=== PATIENT | female | born 1985 | race Caucasian/White ===

== ENCOUNTER 2018-08-30 08:18 | Emergency (ER) | payer OTHER ==
[~2018-08-30] VITALS: Ht 165.1 cm; Wt 104.3 kg
[2018-08-30] MEDS ORDERED: CIPRO500 MG PO (11:18)
== END 2018-08-30 11:22 | disposition home or self-care (01) ==
LOC: ED 08:18
DX: R10.9 Unspecified abdominal pain (principal)
CPT/HCPCS: 74176; 81001; 84703; 87077; 87088; 87186; 96372; 99284-25; J1885

== ENCOUNTER 2024-04-22 19:53 | Emergency (ER) | payer BC ==
[~2024-04-22] VITALS: Ht 165.1 cm; Wt 98.0 kg
[~2024-04-22 19:53] MED LIST: CIPRO500 MG PO
[2024-04-22 20:38] LABS: BASOPHILS 0.6 % (0-2); EOSINOPHILS 3.4 % (0-6); HEMATOCRIT 40.3 % (35.0-50.0); HEMOGLOBIN 13.1 g/dL (12.0-18.0); LYMPHOCYTES 22.5 % (24-44); MCH 26.2 (27-36); MCHC 32.6 g/dl (30-36); MCV 80.3 fl (81-99); MONOCYTES 8.7 % (0-12); NEUTROPHILS 64.8 % (39-80); PLATELET COUNT 325 K/uL (140-440); RBC 5.02 M/ul (4.3-5.7); RDW 15.3 (10.5-15.0)
[2024-04-22 20:54] LABS: ALBUMIN 3.5 g/dL (3.4-5.0); ALBUMIN/GLOBULIN RATIO 0.9 (1.1-2.4); ANION GAP 13.6 (7-21); BILIRUBIN, TOTAL 0.2 ng/dL (0.2-1.0); BUN/CREATININE RATIO 13.79 (6.0-28.6); CALCIUM 8.9 mg/dL (8.5-10.1); CREATININE, SERUM 0.87 mg/dL (0.55-1.02); POTASSIUM 3.6 mmol/L (3.5-5.1); PROTEIN, TOTAL 7.4 g/dL (6.4-8.2)
[2024-04-22 22:05] LABS: BILIRUBIN, URINE NEGATIVE (negative); BLOOD/HGB, URINE NEGATIVE (Negative); KETONE, URINE NEGATIVE (Negative); LEUK ESTERASE, URINE TRACE (negative); NITRITE, URINE NEGATIVE (negative)
[2024-04-22 22:11] LABS: BACTERIA, URINE NONE SEEN /hpf (negative); CASTS, URINE NONE SEEN \\lpf; CRYSTALS, URINE NONE SEEN (0-1+); EPITHELIAL CELLS, URINE SQUAMOUS 3+ /lpf (0-1+); RED BLOOD CELLS, URINE 0-1 /hpf (0-5)
[2024-04-22 22:12] LABS: COLLECTION TYPE, URINE CLEAN CATCH; REFLEX CULTURE, URINE No (No)
[2024-04-22] MEDS ORDERED: FAMOTIDINE 20 MG/ 2 ML VIAL IV ONE (22:15)
[2024-04-22 23:45] VITALS: BP 134/74
== END 2024-04-22 23:45 | disposition home or self-care (01) ==
LOC: ED 19:53
PROVIDERS: Internal Medicine
DX: K80.20 Calculus of gallbladder without cholecystitis without obstruction (principal); Z88.8 Allergy status to other drugs, medicaments and biological substances
CPT/HCPCS: 36415; 76705; 80053; 81001; 83690; 84703; 85025; 96374; 99284-25

== ENCOUNTER 2024-05-19 09:15 | Day surgery (SDC) | payer BC ==
[2024-05-18 09:25] VITALS: BP 116/81
[~2024-05-19] VITALS: Ht 165.1 cm; Wt 97.7 kg
[~2024-05-19 09:15] MED LIST changes: +CEFAZOLIN SODIUM 2 GM/20 ML SYR IV SCH; +HEParin SOD (PORCINE) 5,000 UNIT/ML SDV SUB-Q SCH; +IBLOOD GLUCOSE TEST STRIP 1 EA TEST VI PRN; +LACTATED RINGER'S 1,000 ML IV SCH; +LIDOCAINE HCL 1% 5 ML SDV INJ ONE; +MIDAZOLAM HCL 2 MG/2 ML VIAL ONE
[2024-05-19] MEDS ORDERED: METOCLOPRAMIDE HCL 10 MG/2 ML SDV ONE (09:18)
[2024-05-19] MEDS ORDERED: ondansetron HCL 4 MG/2 ML VIAL ONE (09:18)
[2024-05-19] MEDS ORDERED: KETOROLAC TROMETHAMINE 30 MG/ML VIAL ONE (09:18)
[2024-05-19] MEDS ORDERED: SUGAMMADEX SODIUM 200 MG/2 ML ML ONE (09:18)
[2024-05-19] MEDS ORDERED: ROCURONIUM BROMIDE 50 MG/5 ML SYR ONE (09:18)
[2024-05-19] MEDS ORDERED: propofoL 200 MG/20 ML VIAL ONE (09:18)
[2024-05-19] MEDS ORDERED: SUCCINYLCHOLINE IN 0.9% NACL 200 MG/10 ML SYRINGE ONE (09:18)
[2024-05-19] MEDS ORDERED: DEXAMETHASONE SOD PHOS 4 MG/ML VIAL ONE (09:18)
[2024-05-19] MEDS ORDERED: LACTATED RINGER'S 1,000 ML IV ONE (09:18)
[2024-05-19] MEDS ORDERED: FAMOTIDINE 20 MG/ 2 ML VIAL ONE (09:19)
[2024-05-19] MEDS ORDERED: LIDOCAINE HCL 4% 5 ML AMP ONE (09:19)
[2024-05-19] MEDS ORDERED: fentaNYL citrate 100 MCG/2 ML VIAL ONE (09:19)
[2024-05-19 09:25] VITALS: BP 126/75
[2024-05-19] MEDS ORDERED: METOPROLOL TARTRATE 5 MG/5 ML VIAL ONE (09:32)
[2024-05-19] MEDS ORDERED: MORPHINE SULFATE 10 MG/ML VIAL IV PRN (09:45)
[2024-05-19] MEDS ORDERED: NALOXONE HCL 0.4 MG SYR IV PRN ×2 (09:45→12:45)
[2024-05-19] MEDS ORDERED: droPERidol 5 MG/2 ML VIAL IV PRN (09:45)
[2024-05-19] MEDS ORDERED: IBLOOD GLUCOSE TEST STRIP 1 EA TEST VI PRN (09:45)
[2024-05-19] MEDS ORDERED: ondansetron HCL 4 MG/2 ML VIAL IV PRN (09:45)
[2024-05-19] MEDS ORDERED: METOCLOPRAMIDE HCL 10 MG/2 ML SDV IV PRN (09:45)
[2024-05-19] MEDS ORDERED: PROCHLORPERAZINE EDISYLATE 10 MG/2 ML VIAL IV PRN (09:45)
[2024-05-19] MEDS ORDERED: fentaNYL citrate 50 MCG/ML SDV IV PRN (09:45)
[2024-05-19] MEDS ORDERED: iopamidoL 30 ML VIAL ONE (10:37)
[2024-05-19] MEDS ORDERED: SODIUM CHLORIDE 0.9% 60 ML IV ONE (10:38)
[2024-05-19] MEDS ORDERED: MORPHINE SULFATE 10 MG/ML VIAL ONE (11:40)
[2024-05-19] MEDS ORDERED: TYLENOL EXTRA500 MG PO (12:39)
[2024-05-19] MEDS ORDERED: PERCOCET 7.5-31 EACH PO (12:39)
[2024-05-19] MEDS ORDERED: MOTRIN IB200 MG PO (12:39)
[2024-05-19] MEDS ORDERED: LACTATED RINGER'S 1,000 ML IV SCH (12:45)
[2024-05-19] MEDS ORDERED: ACETAMINOPHEN 500 MG TAB PO PRN (12:45)
[2024-05-19] MEDS ORDERED: IBUPROFEN 600 MG TAB PO PRN (12:45)
[2024-05-19] MEDS ORDERED: OXYCODONE/APAP 7.5/325 TAB PO PRN (12:45)
--- NOTE | 2024-05-19 12:47 | NUR ---
05/19/24 1247 Mayra Antonio 1223- PACU ARRIVES TO THE PACU WITH AN ORAL AIRWAY IN PLACE. JAW THRUST NEEDED TO MAINTAIN AIRWAY. BREATHING IS EVEN AND UNLABORED. MONITORS PUT IN PLACE. VSS. SURGICAL SITES ARE CDI. ABDOMEN IS SOFT AND NONDISTENDED. LR INFUSING IN HER R AC. PT IS LAYING IN SEMI FOWLERS AND IS NONREACTIVE TO VERBAL AND TACITLE STIMULI. PT HAS A MASK IN PLACE ON 10L OF O2.
[2024-05-19 13:45] VITALS: BP 131/74
[2024-05-19] MEDS ORDERED: PROCHLORPERAZINE EDISYLATE 10 MG/2 ML VIAL IV ONE (14:15)
--- NOTE | 2024-05-19 14:15 | NUR ---
PT COMPLAINING OF NAUSEA. SMALL AMOUNT OF EMESIS AT THIS TIME. TEST DEPARTMENT HELPER CALLED ORDER GIVEN FOR COMPAZINE AT THIS TIME. 10 MG GIVEN IV.
--- NOTE | 2024-05-19 14:22 | OR ---
[facility] [address] [place], [place] [address] Signed DATE OF OPERATION: 05/19/2024 SURGEON: Mckenna Rodriguez MD PREOPERATIVE DIAGNOSES: 1. Chronic calculous cholecystitis. 2. History of ulcerative colitis. POSTOPERATIVE DIAGNOSES: 1. Chronic calculous cholecystitis. 2. History of ulcerative colitis. PROCEDURES: 1. Laparoscopic cholecystectomy with intraoperative cholangiogram. 2. Surgeon-directed fluoroscopy. ANESTHESIA: General endotracheal, Mckenna Fernández CRNA and local 10 mL of 0.25% Marcaine with epinephrine. INDICATION: This 39-year-old white woman is a patient of JAMI Long. She was referred for cholecystectomy. In the past four months, she has had right upper abdominal pain occurring episodically. It was most prominent right after Thanksgiving. She has family history of biliary disease in a maternal grandmother, paternal grandfather and her sister (a nurse at [employer]). The patient has underlying history of ulcerative colitis long-standing but takes no medication currently. She has taken Humira for her ulcerative colitis in the past. She is admitted at this time to undergo cholecystectomy for symptomatic gallstones as noted on gallbladder ultrasound. The risk of bleeding, infection, bile duct injury, need for open procedure and other unforeseen complications were reviewed with her in detail. She understands and wished to proceed. FINDINGS: The gallbladder was chronically inflamed. The gallbladder once excised showed extensive cholesterolosis as well as several stones that were yellow mulberry type stones about a cm in size. OF special note is the cystic arterial branch was noted to be short and directly coming off the an extra hepatic portion of the right hepatic artery. the right hepatic artery was completely unharmed. Electronically Signed By: MCKENNA RODRIGUEZ MD 05/19/24 1422 PATIENT NAME: DION JENSEN OPERATIVE REPORT DATE OF : 83 REPORT #: [id number] PHYSICIAN: MCKENNA RODRIGUEZ MD PCP: SHARA HAKW REPORT IS CONFIDENTIAL AND NOT TO BE RELEASED WITHOUT AUTHORIZATION [facility] [address] [place], [place] [address] Signed DESCRIPTION OF PROCEDURE: The patient was brought to the operating room, given a general endotracheal anesthetic. Preoperative antibiotic Ancef was given. Sequential compression device stockings used and heparin subcutaneously administered. The abdomen was prepared with chlorhexidine solution and draped sterilely. An infraumbilical incision was made and using an open Ruel cannula technique pneumoperitoneum was achieved to a level of 14 mmHg of carbon dioxide gas. Intra-abdominal inspection showed no sign of ascites or carcinomatosis. The gallbladder was obscured from view due to obesity and omentum. The liver appeared normal. Three additional trocars were placed in their usual configuration in the subxiphoid, right midclavicular, and right anterior axillary line. Gallbladder was elevated cephalad and retracted laterally. Using blunt and electrocautery dissection fatty peritoneum overlying the gallbladder was dissected free revealing the underlying gallbladder. The gallbladder was rather elongated and dissection ultimately identified the cystic duct which was meticulous dissected free from surrounding tissue. Once isolated, one could see a small arterial branch, but also a very large arterial branch which ultimately was confirmed to be the right hepatic artery. Cystic arterial branches were clipped and divided exposing well at the point of the cystic duct and the critical view of safety. Clips were applied across the gallbladder cystic duct junction and a transverse choledochotomy made in the cystic duct. Egress of clear bile was noted. Using the Olvera type cholangiocatheter, intraoperative cholangiography was undertaken showing free flow of contrast in biliary tree with prompt emptying into the duodenum. The catheter was removed and the cystic duct was triply clipped and divided. The gallbladder was then dissected free in a retrograde fashion using electrocautery. Care was taken to avoid any injury to the visualized portion of the right hepatic artery. Ultimately, one could identify where the artery reentered the liver. The gallbladder was dissected free completely and placed in an endobag and extracted through the infraumbilical port site, opened on the back table and found to have cholesterolosis as well as several stones that were yellow and mulberry in shape. Irrigation was undertaken in the subhepatic space. There was no sign of bile leak, bleeding, or other problems. Excess irrigation fluid was suctioned free and plans made for closure. The infraumbilical fascial incision was reapproximated with interrupted 0 Vicryl suture. A 10 mL of 0.25% Marcaine with epinephrine was injected locally into the trocar sites. The skin was then closed with interrupted 3-0 Vicryl. Steri-Strips were applied. The patient was ultimately extubated and transferred to the recovery room in good condition having suffered no complication. Sponge, needle, and instrument counts were reported as correct x3. Electronically Signed By: MCKENNA RODRIGUEZ MD 05/19/24 1422 PATIENT NAME: DION JENSEN OPERATIVE REPORT DATE OF : 83 REPORT #: [id number] PHYSICIAN: MCKENNA RODRIGUEZ MD PCP: SHARA HAWK REPORT IS CONFIDENTIAL AND NOT TO BE RELEASED WITHOUT AUTHORIZATION [place] [phone] Signed MD PEPITO Lam/MODL /[id number] cc: JAMI Long Copies: SHARA HAWK ~ Electronically Signed By: MCKENNA RODRIGUEZ MD 05/19/24 1422 PATIENT NAME: DION JENSEN OPERATIVE REPORT DATE OF : 83 REPORT #: [id number] PHYSICIAN: MCKENNA RODRIGUEZ MD PCP: SHARA HAWK REPORT IS CONFIDENTIAL AND NOT TO BE RELEASED WITHOUT AUTHORIZATION
--- NOTE | 2024-05-19 14:49 | NUR ---
PT UP TO BATHROOM. VOIDED 200ML. PT COMPLAINING OF PAIN 4/10 AT THIS TIME. 1 TAB PERCOCET 7.5/325 GIVEN AT THIS TIME.
--- NOTE | 2024-05-19 15:00 | NUR ---
PT DISCHARGED TO HOME WITH ALL BELONGINGS WITH . DISCHARGE INSRUCTIONS GIVEN ON MEDICATION, FOLLOW-UP, WHEN TO CONTACT THE MD, ACTIVITY, AND DIET. PT VERBALIZED UNDERSTADING AND LEFT FOR HOME WITH .
[2024-05-19] MEDS ORDERED: SEVOFLURANE 250 ML BTL INH ONE (15:15)
--- NOTE | 2024-05-23 13:16 | PATH ---
[facility] [address] [facility] [place], [place] [address] Signed SPECIMEN(S): A GALLBLADDER AND STONES SPECIMEN SOURCE: A. GALLBLADDER AND STONES CLINICAL HISTORY: Chronic cholecystitis with calculus. FINAL PATHOLOGIC DIAGNOSIS: Gallbladder and stones: - Chronic calculous cholecystitis. - Mucosal cholesterolosis. JVR:clv MICROSCOPIC EXAMINATION: Histologic sections of all submitted blocks are examined by light microscopy. These findings, together with the gross examination, support the pathologic diagnosis. GROSS DESCRIPTION: The specimen, labeled and designated "Rinajudit, J, " and designated on the requisition "gallbladder and stones," is received in formalin and consists of Specimen: Previously opened gallbladder. Dimensions: 8.6 x 4.5 x 1.3 cm. Serosa: Yellow-green and smooth. Cystic Duct: Inked, from patent. Calculi: 3.6 x 2.2 x 1.3 cm aggregate of yellow-bull multilobulated calculi. Mucosa: Green and velvety with yellow flecking. Wall thickness: 0.6 cm. Lymph node: No pericystic lymph nodes are grossly identified. Additional: None. Gear Cutting Machine Set Up Operator sections are submitted in (A1). FB (under the direct supervision of a pathologist) The Gross Description was prepared using a voice recognition system. The report was reviewed for accuracy; however, sound-alike word errors, addition and/or deletions may occur. If there is any question about this report, please contact Client Services. PERFORMING LABORATORY: Technical component was performed by [facility], [address] [place] [id number] (CLIA# [id number]). Professional interpretation was PATIENT NAME: DION JENSEN PATHOLOGY DATE OF : 83 REPORT #: [id number] PHYSICIAN: [facility] PCP: SHARA HAWK REPORT IS CONFIDENTIAL AND NOT TO BE RELEASED WITHOUT AUTHORIZATION [facility] [address] [place], [place] [address] Signed performed by [facility] - [address] [place] [address] (CLIA#: [id number]). Diagnostician: Eric Phelps MD Pathologist Electronically Signed 05/23/2024 Copies: ~ PATIENT NAME: DION JENSEN PATHOLOGY DATE OF : 83 REPORT #: [id number] PHYSICIAN: [facility] PCP: SHARA HAWK REPORT IS CONFIDENTIAL AND NOT TO BE RELEASED WITHOUT AUTHORIZATION
== END 2024-05-19 15:00 | disposition home or self-care (01) ==
LOC: DS 09:15
PROVIDERS: ATTEND Surgery
PROC: 0FT44ZZ Resection of Gallbladder, Percutaneous Endoscopic Approach (ICD-10-PCS; principal; 2024-05-19 11:15)
DX: K81.1 Chronic cholecystitis (principal); K51.80 Other ulcerative colitis without complications
CPT/HCPCS: 00790; 74300; J0330; J0690; J0780; J1100; J1644; J1885; J2250; J2270; J2405; J2704; J2765; J3010; J3490; J7121; Q9967